=== PATIENT | female | born 1990 | race Native Hawaiian/Other Pacific Islander ===

== ENCOUNTER 2016-11-17 08:29 | Outpatient (CLI) | payer BC | END 2016-11-17 19:31 | disposition home or self-care (01) | LOC: US 08:29 | DX: R10.11 Right upper quadrant pain (principal) ==

== ENCOUNTER 2016-11-18 10:08 | Outpatient (CLI) | payer BC | END 2016-11-18 11:30 | disposition home or self-care (01) | LOC: NM 10:08 | DX: R10.13 Epigastric pain (principal); R10.84 Generalized abdominal pain | CPT/HCPCS: A9537 ==

== ENCOUNTER 2018-01-03 11:14 | Outpatient (CLI) | payer BC | END 2018-01-03 20:00 | disposition home or self-care (01) | LOC: US 11:14 | DX: R94.6 Abnormal results of thyroid function studies (principal); R63.5 Abnormal weight gain; R51 Headache; R53.83 Other fatigue ==

== ENCOUNTER 2018-02-22 15:59 | Outpatient (CLI) | payer BC | END 2018-02-22 20:45 | disposition home or self-care (01) | LOC: RAD 15:59 | DX: R05 Cough (principal) ==

== ENCOUNTER 2018-11-14 18:43 | Outpatient (CLI) | payer BC | END 2018-11-14 19:51 | disposition home or self-care (01) | LOC: RAD 18:43 | DX: R05 Cough (principal); R50.9 Fever, unspecified ==